=== PATIENT | female | born 1990 | race Caucasian/White ===

== ENCOUNTER 2023-10-10 07:47 | Inpatient (IN) | payer OTHER ==
[2023-10-10] MEDS: ELECTROLYTE-148 SOLN 1,000 ML IV SCH (09:00)
[2023-10-10 09:04] LABS: BASO % 0.4 % (0-2.0); EOS % 2.1 % (0-4.5); HEMATOCRIT 36.5 % (32.4-45.2); HEMOGLOBIN 12.6 GM/dL (10.7-15.3); LYMPH % 20.8 % (8-40); MCHC 34.4 g/dl (32.0-36.0); MEAN CELL VOLUME 90.1 fl (80-96); MONO % 8.9 % (3.8-10.2); NEUT % 67.8 % (42.8-82.8); PLATELET COUNT 226 10^3/uL (134-434); RBC 4.05 M/mm3 (3.60-5.2); RDW 14.2 % (11.6-15.6); WHITE BLOOD COUNT 6.6 K/mm3 (4.0-10.0)
[2023-10-10 09:13] LABS: INR 0.91 (0.83-1.09); PROTHROMBIN TIME (PATIENT) 10.6 SEC (9.7-13.0)
[2023-10-10 09:15] LABS: ACTIVATED PTT 25.5 SECONDS (25.2-36.5)
[2023-10-10 09:20] LABS: POTASSIUM 3.5 mmol/L (3.5-5.1)
[2023-10-10 09:21] LABS: CALCIUM 8.7 mg/dL (8.5-10.1)
[2023-10-10 09:22] LABS: BLOOD UREA NITROGEN 7.7 mg/dL (7-18)
[2023-10-10 09:25] LABS: CREATININE 0.6 mg/dL (0.55-1.3)
[2023-10-10] MEDS ORDERED: OXYTOCIN 30 UNITS in 0.9% NS 30 UNIT/500 ML INFUS.BAG IVPB ONE (09:28)
[2023-10-10] MEDS: OXYTOCIN 30 UNITS in 0.9% NS 30 UNIT/500 ML INFUS.BAG IVPB SCH (09:30)
[2023-10-10 10:08] VITALS: BMI 49.4
[2023-10-10] MEDS ORDERED: FENTANYL/BUPIVACAINE/NS/PF - PCEA - 50 ML DISP.SYRIN EP ONE (13:57)
[2023-10-10] MEDS ORDERED: NALOXONE HCL 0.4 MG/ML VIAL IVPUSH PRN (14:07)
[2023-10-10] MEDS ORDERED: FENTANYL CITRATE/PF 50 MCG/ML VIAL ONE ×2 (14:08→15:54)
[2023-10-10] MEDS ORDERED: BUPIVACAINE HCL/PF 0.25% (2.5MG/ML) 10 ML VIAL ONE (14:09)
[2023-10-10] MEDS: FENTANYL/BUPIVACAINE/NS/PF - PCEA - 50 ML DISP.SYRIN EP SCH (14:20)
[2023-10-10] MEDS ORDERED: ceFAZolin SODIUM 1 GM VIAL ONE (15:41)
[2023-10-10] MEDS ORDERED: ONDANSETRON 4 MG/2 ML VIAL ONE (15:41)
[2023-10-10] MEDS ORDERED: METOCLOPRAMIDE HCL INJECTION 10 MG/2 ML VIAL ONE (15:41)
[2023-10-10] MEDS ORDERED: DEXAMETHASONE SOD PHOSPHATE 4 MG/1 ML VIAL ONE (15:41)
[2023-10-10] MEDS ORDERED: OXYTOCIN 10 UNITS/ML VIAL ONE (16:13)
[2023-10-10] MEDS ORDERED: ONDANSETRON 4 MG/2 ML VIAL IVPB PRN (16:39)
[2023-10-10] MEDS ORDERED: oxyCODONE HCL 5 MG TABLET PO PRN ×2 (16:43)
[2023-10-10 17:04] LABS: CORD HCO3 23.2 mmHg (20-29); CORD PCO2 80.1 mmHg (30-78); CORD pH 7.079 (7.14-7.44)
[2023-10-10] MEDS ORDERED: OXYTOCIN 20 UNITS in 0.9% NS 20 UNIT/1,000 ML INFUS.BAG IV ONE (17:12)
[2023-10-10 17:18] LABS: CORD BASE EXCESS -7.4 mmol/L (0-2); CORD HCO3 22.2 mmHg (20-29); CORD PCO2 62.6 mmHg (30-78); CORD pH 7.168 (7.14-7.44)
[2023-10-10] MEDS ORDERED: ACETAMINOPHEN 325 MG TABLET (FP) PO PRN (17:18)
[2023-10-10] MEDS: OXYTOCIN 20 UNITS in 0.9% NS 20 UNIT/1,000 ML INFUS.BAG IV SCH (17:41)
[2023-10-10 22:01] LABS: HIV INTERPRETATION NEGATIVE (NEGATIVE)
[2023-10-10 22:09] VITALS: RESP 18
[2023-10-10] MEDS: SIMETHICONE 80 MG TAB.CHEW (FP) PO PRN (22:32)
[2023-10-10] MEDS: SENNOSIDES/DOCUSATE COMBO (SENNA PLUS) TABLET (UD) PO SCH (22:34)
[2023-10-11] MEDS: ACETAMINOPHEN 1000 MG/100 ML BAG IVPB SCH (01:32)
[2023-10-11] MEDS: IBUPROFEN 800 MG/8 ML IJ IVPB SCH (01:55)
[2023-10-11 08:32] LABS: BASO % 0.2 % (0-2.0); EOS % 0.1 % (0-4.5); HEMATOCRIT 33.9 % (32.4-45.2); HEMOGLOBIN 11.6 GM/dL (10.7-15.3); LYMPH % 9.8 % (8-40); MCH 30.9 pg (25.7-33.7); MCHC 34.2 g/dl (32.0-36.0); MEAN CELL VOLUME 90.6 fl (80-96); MEAN PLT VOLUME 9.1 fl (7.5-11.1); MONO % 10.1 % (3.8-10.2); NEUT % 79.8 % (42.8-82.8); PLATELET COUNT 214 10^3/uL (134-434); RBC 3.74 M/mm3 (3.60-5.2); RDW 13.7 % (11.6-15.6)
[2023-10-11] MEDS: ENOXAPARIN NA (PORCINE) 40 MG/0.4 ML DISP.SYRIN SQ SCH (09:44)
[2023-10-11] MEDS: PRENATAL VITAMINS W/ FOLIC ACID TABLET (FP) PO SCH (09:45)
[2023-10-11] MEDS ORDERED: ENOXAPARIN NA (PORCINE) 40 MG/0.4 ML DISP.SYRIN SQ SCH (10:00)
[2023-10-11] MEDS ORDERED: BISACODYL 10 MG SUPP.RECT RC PRN (16:39)
[2023-10-11] MEDS: IBUPROFEN 600 MG TABLET (FP) PO PRN (19:49)
[2023-10-11] MEDS: ACETAMINOPHEN 500 MG TABLET (FP) PO PRN (21:11)
[2023-10-12] MEDS ORDERED: ACETAMINOPHEN 500 MG TABLET (FP) PO PRN (10:00)
[2023-10-12] MEDS ORDERED: IBUPROFEN 600 MG TABLET (FP) PO PRN (10:00)
[2023-10-12 11:03] VITALS: BP 101/69; PULSE 100; TEMP 98.5
== END 2023-10-12 15:47 | disposition home or self-care (01) | DRG 540 ==
LOC: JLDR 07:47 → J3W 19:40
PROVIDERS: ADMIT Specialist; ATTEND Specialist
PROC: 10D00Z1 Extraction of Products of Conception, Low, Open Approach (ICD-10-PCS; principal; 2023-10-10)
PROC: 10907ZC Drainage of Amniotic Fluid, Therapeutic from Products of Conception, Via Natural or Artificial Opening (ICD-10-PCS; 2023-10-10)
DX: O76 Abnormality in fetal heart rate and rhythm complicating labor and delivery (principal); O36.63X0 Maternal care for excessive fetal growth, third trimester, not applicable or unspecified; Z3A.39 39 weeks gestation of pregnancy; Z37.0 Single live birth
CPT/HCPCS: 36415; 36600; 59025; 80048; 82803; 82962; 85025; 85610; 85730; 86780; 86850; 86900; 86901; 87389; 88307-TC; J0131